=== PATIENT | male | born 1980 | race African-American/Black ===

== ENCOUNTER 2024-02-08 13:01 | Outpatient (AMB) | payer OTHER, SELFPAY ==
[2024-02-08 13:08] VITALS: BP 148/108; PULSE 96; O2SAT 96; BMI 42.8
--- NOTE | 2024-02-08 13:08 | A.OFFPC_ITS ---
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 They have not had the opportunity to see a PCP previously, as they were incarcerated for a period of 10 years and have only recently been released. Hotel Room Attendant Required: No Accompanied by: Self / Same As Patient Allergies No Known Allergies Allergy (Verified 02/08/24 13:26) Medication List - Last Reconciled 02/08/24 by Benigno Green PA-C amlodipine 5 mg PO DAILY 30 days atorvastatin 20 mg PO DAILY 30 days blood pressure test kit-large Testing once a day losartan 100 mg PO DAILY 30 days Tobacco use date assessed: 02/08/24 Dental Screening Dental Screen Date: 02/08/24 Did you have a dental visit in the last 12 months?: No Did you have a dental problem in the last 6 months where you did not have access to dental care?: No Was dental information given to patient?: Yes 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 Patient has a past medical history significant for hypertension, hyperlipidemia, PTSD and major depressive disorder. He has not seen a PCP in quite some time. He does report being incarcerated over the last 10 years and recently released. Currently on probation and is trying to get his life back together. Hypertension: Blood pressure today in office elevated, he recently restarted blood pressure medication. He reports the blood pressure medication he is on currently has been effective for him. He would like to hold making any changes in monitor blood pressure at home over the next few weeks. He otherwise is asymptomatic without any headache, chest discomfort or shortness a breath. .. Hyperlipidemia: Patient continues on atorvastatin 20 mg without any side effects. . PTSD: Currently speaking with a mental health therapist. Does have PTSD from his 10 year incarceration. He still suffers with difficulties with depression including symptoms mood instability, isolation, irritability, quick to anger. He is interested in starting mental health medications to help him regulate. .. Tobacco dependency: He does report smoking 4-5 cigarettes per day and does understand he needs to quit. Had this time he has not interested in any nicotine replacement or medications to help him quit smoking. [facility] Surgical History History of tooth extraction Social History (Updated 02/08/24 @ 13:46 by Benigno Green PA-C) Housing: Apartment Alcohol intake: never Patient Tobacco Use Status: Current everyday Tobacco user Tobacco use type: Cigarette Cigarettes Per Day: 5 e-Cigarette/Vaping Use: Never Used Substance Use Type: Marijuana service: No Current occupational status: unemployed Cognitive needs: No Hearing needs: No Vision needs: No Questionnaire PHQ-9 Over the last 2 weeks, how often have you been bothered by any of the following problems? 1. Little interest or pleasure in doing things: nearly every day 2. Feeling down, depressed, or hopeless: nearly every day 3. Trouble falling or staying asleep, or sleeping too much: nearly every day 4. Feeling tired or having little energy: nearly every day 5. Poor appetite or overeating: nearly every day 6. Feeling bad about yourself - or that you are a failure or have let yourself or your family down: nearly every day 7. Trouble concentrating on things, such as reading the newspaper or watching television: nearly every day 8. Moving or speaking so slowly that other people could have noticed. Or the opposite - being so fidgety or restless that you have been moving around a lot more than usual: nearly every day 9. Thoughts that you would be better off or of hurting yourself in some way: not at all Total score: 24 Depression Screening Interpretation: Positive Depression Screening Follow-up: Existing condition and New Medication prescribed Depression Screening Done: Yes 73468 - PHQ-9 Billing: Yes Source: Developed by Drs. Laureano Hazel, Margarita Mc, Travis Tamayo and colleagues, with an educational emelina from [employer]. Thrive Questionnaire Date Thrive assessed: 02/08/24 I am a: Patient What is your living situation today?: I have a steady place to live Within the past 12 months, did the food you bought not last and you didn't have the money to get more?: Never true Within the past 12 months, did you worry whether your food would run out before you got money to buy more?: Never true Do you have trouble paying for medicines?: No Do you have trouble getting transportation to medical appointments?: No Do you have trouble paying your heating and electricity bill?: No Do you have trouble taking care of your child, family member or friend?: No Do you have trouble with day-to-day activities such as bathing, preparing meals, shopping, managing finances, etc.?: No Are you currently unemployed and looking for a job?: No Are you interested in more education?: No Please select the resources that you would like help with: None Currently or been in a relationship where the following occur: no concerns reported THRIVE Score: 0 AUDIT C Alcohol Use Questionnaire (AUDIT-C) 1. How often do you have a drink containing alcohol?: Never 3. How often do you have six or more drinks on one occasion?: Never Total Score: 0 LUDY-7 AMB Questionnaire LUDY-7 Date LUDY - 7 assessed: 02/08/24 Feeling nervous, anxious, or on edge: 3 = Nearly every day Not being able to stop or control worryin = Nearly every day Worrying too much about different things: 3 = Nearly every day Trouble relaxin = Nearly every day Being so restless that it is hard to sit still: 3 = Nearly every day Becoming easily annoyed or irritable: 3 = Nearly every day Feeling afraid as if something awful might happen: 3 = Nearly every day Total LUDY-7 score (0-4 normal; 5-9 mild; 10-14 moderate; 15-21 severe): 21 Source: Developed by Drs. Laureano Hazel, Margarita Mc, Travis Tamayo and colleagues, with an educational emelina from [employer]. LUDY-7 Assessment Billing LUDY-7 Assessment Tool: LUDY-7 Assessment 05129 Review of Systems Const Denies headache(s) Eyes Denies loss of vision ENT Denies vertigo, Denies dizziness, Denies headache(s) and Denies sore throat Card Denies chest pain, Denies leg edema and Denies lightheadedness Resp Denies cough, Denies hemoptysis and Denies wheezing GI Denies abdominal pain, Denies melena, Denies constipation, Denies diarrhea and Denies vomiting Denies dysuria, Denies urinary frequency and Denies urinary urgency Musc Denies arthralgias, Denies joint swelling, Denies numbness and Denies tingling Neuro Denies Abnormal speech present, Denies behavioral changes, Denies vertigo, Denies dizziness, Denies headache(s), Denies loss of vision, Denies memory loss, Denies numbness and Denies tingling Psych Reports anxiety, Denies behavioral changes, Reports depression, Reports irritability, Denies memory loss, Reports mood swings and Denies panic attacks Carlos/Lymph Denies easy bleeding and Denies easy bruising Aller/Immun Denies wheezing Physical exam (Primary Care) Vital Signs: Last Vital Signs Pulse 96 02/08/24 13:08 BP 148/108 H 02/08/24 13:08 Pulse Ox 96 02/08/24 13:08 Oxygen Delivery Method Room Air 02/08/24 13:08 BMI result Body Mass Index 42.8 BMI Assessment/Plan discussion: High BMI High, discussed plan: lifestyle, weight reduction, dietary and physical activity Tobacco/Smoking Status: Tobacco use Status Tobacco use date assessed 02/08/24 02/08/24 13:18 Patient Tobacco Use Status Current everyday Tobacco 02/08/24 13:46 Tobacco use type Cigarette 02/08/24 13:46 e-Cigarette/Vaping Use Never Used 02/08/24 13:46 Are you ready to quit: No Tobacco cessation counseling provided: Yes Items discussed: [employer] Relapse Prevention: discussed the importance of a supportive environment, discussed negative mood or depression after quitting, weight gain after smoking is common and discussed dietary, exercise and/or lifestyle changes Number of minutes spent counselin CPT code: 11551 - 4-10 Minutes PHQ-9: PHQ-9 Score PHQ-9: Total score 24 02/08/24 13:39 Depression Screening Interpretation: Positive Depression Screening Follow-up: Existing condition and New Medication prescribed Thrive Assessment: Date of Thrive Assessment Date Thrive assessed 02/08/24 02/08/24 13:22 Currently or been in a relationship where the following occur: no concerns reported Const General: healthy appearing, no acute distress, alert and awake Nutritional Appearance: well nourished Orientation/consciousness: oriented to person, oriented to place and oriented to time HENMT Ears: TM's normal bilaterally General nose exam: Normal nasal mucous membranes and turbinates present Eyes Conjunctivae: conjunctivae normal Sclerae: sclerae normal Pupils: Equal, round and reactive pupils present Neck Neck: Yes no lymphadenopathy and Yes no JVD Thyroid: Thyroid normal Carotids: no bruits Resp Effort & Inspection: normal respiratory effort and not tachypneic Auscultation: no crackles, no rales, no rhonchi and no wheezes Cardio Rate: regular rate Rhythm: regular rhythm Heart sounds: no murmurs and normal S1 and S2 GI Palpation (GI): Soft to palpation, nontender, no hepatomegaly and no splenomegaly Auscultation: normal bowel sounds Skin General skin exam: no rashes or lesions noted and dry skin Neuro General: oriented to person, oriented to place and oriented to time Cranial nerves: Yes Equal, round and reactive pupils present Speech: No Abnormal speech present Gait exam (Neuro): Normal gait present Motor exam (neuro): no tremor noted Extrem Right upper extremity: full ROM Left upper extremity: full ROM Right lower extremity: full ROM; no edema Left lower extremity: full ROM; no edema Psych Mental Status: mental status grossly normal Speech and movement: Normal speech and movement present Affect: normal affect Attitude: cooperative Thought process: Normal thought process present Assessment and Plan Assessment & Plan (1) Hypertension: Code(s): I10 - Essential (primary) hypertension Qualifiers: Hypertension type: primary hypertension Qualified Code(s): I10 - Essential (primary) hypertension Plan: Blood pressure elevated today in office. Will supply patient with paper Rx for blood pressure cuff to do blood pressure monitoring at home. If blood pressure remains consistently above 140/90 will consider up titrating amlodipine dose. Goal blood pressures to be below 140/90. (2) Hyperlipidemia: Code(s): E78.5 - Hyperlipidemia, unspecified Qualifiers: Hyperlipidemia type: mixed hyperlipidemia Qualified Code(s): E78.2 - Mixed hyperlipidemia Plan: Will check fasting lipid panel to ensure stable cholesterol. Goal LDL to be below 160 (3) PTSD (post-traumatic stress disorder): Code(s): F43.10 - Post-traumatic stress disorder, unspecified Plan: As per HPI was incarcerated for 10 years, patient suffers with PTSD, major depressive disorder and anxiety. He currently does speak with a mental therapist (4) Obese: Code(s): E66.9 - Obesity, unspecified Qualifiers: Body mass index: BMI 40.0-44.9 Obesity classification: adult class 3 (BMI >= 40) Obesity type: due to excess calories Serious obesity comorbidity presence: with serious comorbidity Qualified Code(s): E66.01 - Morbid (severe) obesity due to excess calories; Z68.41 - Body mass index [BMI] 40.0-44.9, adult Plan: Patient does understand his BMI is over 40 will work on being more physically active and adapt to better eating habits to reduce his weight (5) MDD (major depressive disorder), recurrent episode, moderate: Code(s): F33.1 - Major depressive disorder, recurrent, moderate Plan: Patient's PHQ-9 score positive depression which has been existing condition for him. He is willing to start SSRI therapy again to help him with his depression. Will follow-up in 4 weeks to evaluate the effectiveness of medication. (6) Tobacco dependence: Code(s): F17.200 - Nicotine dependence, unspecified, uncomplicated Plan: Edbrenda understand seen does need to quit smoking. At this time he has not interested in smoking cessation help as he uses smoking as a stress reliever. (7) Constipation: Code(s): K59.00 - Constipation, unspecified Qualifiers: Constipation type: other constipation type Qualified Code(s): K59.09 - Other constipation Orders: Orders Microalbumin, Random (w Creat) 02/08/24 I10 - Essential (primary) hypertension Comprehensive [place]. Panel Fast 02/08/24 I10 - Essential (primary) hypertension Lipid Panel 02/08/24 E78.2 - Mixed hyperlipidemia Complete Blood Count no Diff 02/08/24 I10 - Essential (primary) hypertension Medications: New sennosides (Senna Lax) 8.6 mg PO BEDTIME 30 tabs 0RF 30 days K59.09 - Other constipation blood pressure test kit-large Testing once a day 1 ea 0RF I10 - Essential (primary) hypertension trazodone 50 mg PO BEDTIME 30 tabs 3RF 30 days F33.1 - Major depressive disorder, recurrent, moderate sertraline 50 mg PO DAILY 30 tabs 3RF 30 days F33.1 - Major depressive disorder, recurrent, moderate Patient Instructions: Goals: Blood pressure to remain below 140/90 Barriers: Adherence to medication, healthy eating habits and physical activity Coding Level of Care Code New Pt Level 4 (02091) Diagnoses Primary hypertension I10 Hypertension type: primary hypertension Mixed hyperlipidemia E78.2 Hyperlipidemia type: mixed hyperlipidemia PTSD (post-traumatic stress disorder) F43.10 Class 3 severe obesity due to excess calories with serious comorbidity and body mass index (BMI) of 40.0 to 44.9 in adult E66.01; Z68.41 Body mass index: BMI 40.0-44.9 Obesity classification: adult class 3 (BMI >= 40) Obesity type: due to excess calories Serious obesity comorbidity presence: with serious comorbidity MDD (major depressive disorder), recurrent episode, moderate F33.1 Tobacco dependence F17.200 Other constipation K59.09 Constipation type: other constipation type Additional Codes LUDY-7 Assessment Billing - LUDY-7 Assessment Tool: LUDY-7 Assessment 64541 ([id number]) Vital Signs *Quality* - CPT code: 31393 - 4-10 Minutes ([id number])
== END 2024-02-08 13:54 | disposition home or self-care (01) ==
PROVIDERS: PCP Physician Assistant; Visit Provider Physician Assistant
DX: I10 Essential (primary) hypertension (principal); E66.01 Morbid (severe) obesity due to excess calories; Z68.41 Body mass index [BMI] 40.0-44.9, adult; F33.1 Major depressive disorder, recurrent, moderate; E78.2 Mixed hyperlipidemia; F43.10 Post-traumatic stress disorder, unspecified; F17.200 Nicotine dependence, unspecified, uncomplicated; K59.09 Other constipation
CPT/HCPCS: 96127; 99204

== ENCOUNTER 2024-03-16 10:44 | Outpatient (AMB) | payer OTHER, SELFPAY ==
[2024-03-16 10:54] VITALS: BP 156/110; PULSE 82; O2SAT 95; BMI 42.8
--- NOTE | 2024-03-16 10:54 | MHC.PC.OV ---
Vital Signs 03/16/24 10:54 Height 5 ft 10 in Weight 298 lb 6 oz BMI 42.8 BP 156/110 H Blood Pressure Location Lt brachial Position Sitting Pulse 82 Pulse Source Pulse Oximeter Pulse Oximetry (%) 95 Oxygen Delivery Method Room Air Intake Visit Reasons: 1mof\u Intake Note: Pt is here for HTN F/U. Night Manager Required: No Accompanied by: Self / Same As Patient Allergies No Known Allergies Allergy (Verified 03/16/24 11:13) Medication List - Last Reconciled 03/16/24 by Benigno Green PA-C amlodipine 5 mg PO DAILY 30 days atorvastatin 20 mg PO DAILY 30 days blood pressure test kit-large Testing once a day losartan 100 mg PO DAILY 30 days sennosides (Senna Lax) 8.6 mg PO BEDTIME 30 days sertraline 50 mg PO DAILY 30 days trazodone 50 mg PO BEDTIME 30 days Tobacco use date assessed: 02/08/24 Dental Screening Dental Screen Date: 02/08/24 HPI 1mof\u HPI Details Patient is a 43-year-old male here today for a one-month follow-up visit Patient has a past medical history significant for hypertension, hyperlipidemia, PTSD and major depressive disorder. He does report being incarcerated over the last 10 years and recently released. Currently on probation and is trying to get his life back together. At last visit we discussed his depression and anger was willing to start SSRI therapy. He has speaking with a mental health therapist as well. Unfortunately was in the process of changing insurance and was not able to get the trazodone with the sertraline. He is working on getting new insurance and will flower buncher or picker medication when he can. Follow-up in 6 weeks to evaluate effectiveness of the medication. CHRONIC MEDICAL CONDITION--> Hypertension: Blood pressure today in office elevated, he recently restarted blood pressure medication. He reports the blood pressure medication he is on currently has been effective for him. He would like to hold making any changes in monitor blood pressure at home over the next few weeks. He otherwise is asymptomatic without any headache, chest discomfort or shortness a breath. PLAN: Continue working on lifestyle and dietary modifications. Will consider increasing amlodipine to optimal dose .. Hyperlipidemia: Patient continues on atorvastatin 20 mg without any side effects. . PTSD: Currently speaking with a mental health therapist. Does have PTSD from his 10 year incarceration. He still suffers with difficulties with depression including symptoms mood instability, isolation, irritability, quick to anger. He is interested in starting mental health medications to help him regulate. .. Tobacco dependency: He does report smoking 4-5 cigarettes per day and does understand he needs to quit. Had this time he has not interested in any nicotine replacement or medications to help him quit smoking. [facility] Surgical History History of tooth extraction Social History Housing: Apartment Alcohol intake: never Patient Tobacco Use Status: Current everyday Tobacco user Tobacco use type: Cigarette Cigarettes Per Day: 5 e-Cigarette/Vaping Use: Never Used Substance Use Type: Marijuana service: No Current occupational status: unemployed Cognitive needs: No Hearing needs: No Vision needs: No Questionnaire Thrive Questionnaire Date Thrive assessed: 02/08/24 LUDY-7 AMB Questionnaire LUDY-7 Date ULDY - 7 assessed: 02/08/24 Source: Developed by Drs. Laureano Hazel, Margarita Mc, Travis Tamayo and colleagues, with an educational emelina from [employer]. Review of Systems Const Denies headache(s) Eyes Denies loss of vision ENT Denies vertigo, Denies dizziness, Denies headache(s) and Denies sore throat Card Denies chest pain, Denies leg edema and Denies lightheadedness Resp Denies cough, Denies hemoptysis and Denies wheezing GI Denies abdominal pain, Denies melena, Denies constipation, Denies diarrhea and Denies vomiting Denies dysuria, Denies urinary frequency and Denies urinary urgency Musc Denies arthralgias, Denies joint swelling, Denies numbness and Denies tingling Neuro Denies Abnormal speech present, Denies behavioral changes, Denies vertigo, Denies dizziness, Denies headache(s), Denies loss of vision, Denies memory loss, Denies numbness and Denies tingling Psych Denies anxiety, Denies behavioral changes, Denies depression, Denies memory loss and Denies panic attacks Carlos/Lymph Denies easy bleeding and Denies easy bruising Aller/Immun Denies wheezing Physical exam (Primary Care) Vital Signs: Last Vital Signs Pulse 82 03/16/24 10:54 BP 156/110 H 03/16/24 10:54 Pulse Ox 95 03/16/24 10:54 Oxygen Delivery Method Room Air 03/16/24 10:54 BMI result Body Mass Index 42.8 BMI Assessment/Plan discussion: High BMI High, discussed plan: lifestyle, weight reduction, dietary and physical activity Tobacco/Smoking Status: Tobacco use Status Tobacco use date assessed 02/08/24 03/16/24 10:54 Patient Tobacco Use Status Current everyday Tobacco 03/16/24 10:54 Tobacco use type Cigarette 03/16/24 10:54 e-Cigarette/Vaping Use Never Used 03/16/24 10:54 Are you ready to quit: No Tobacco cessation counseling provided: Yes Items discussed: Nicotine replacement Relapse Prevention: discussed the importance of a supportive environment, discussed negative mood or depression after quitting, weight gain after smoking is common and discussed dietary, exercise and/or lifestyle changes Number of minutes spent counselin CPT code: 91923 - 4-10 Minutes Thrive Assessment: Date of Thrive Assessment Date Thrive assessed 02/08/24 03/16/24 10:54 Const General: healthy appearing, no acute distress, alert and awake Nutritional Appearance: well nourished Orientation/consciousness: oriented to person, oriented to place and oriented to time HENMT Ears: TM's normal bilaterally General nose exam: Normal nasal mucous membranes and turbinates present Eyes Conjunctivae: conjunctivae normal Sclerae: sclerae normal Pupils: Equal, round and reactive pupils present Neck Neck: Yes no lymphadenopathy and Yes no JVD Thyroid: Thyroid normal Carotids: no bruits Resp Effort & Inspection: normal respiratory effort and not tachypneic Auscultation: no crackles, no rales, no rhonchi and no wheezes Cardio Rate: regular rate Rhythm: regular rhythm Heart sounds: no murmurs and normal S1 and S2 GI Palpation (GI): Soft to palpation, nontender, no hepatomegaly and no splenomegaly Auscultation: normal bowel sounds Skin General skin exam: no rashes or lesions noted and dry skin Neuro General: oriented to person, oriented to place and oriented to time Cranial nerves: Yes Equal, round and reactive pupils present Speech: No Abnormal speech present Gait exam (Neuro): Normal gait present Motor exam (neuro): no tremor noted Extrem Right upper extremity: full ROM Left upper extremity: full ROM Right lower extremity: full ROM; no edema Left lower extremity: full ROM; no edema Psych Mental Status: mental status grossly normal Speech and movement: Normal speech and movement present Affect: normal affect Attitude: cooperative Thought process: Normal thought process present Assessment and Plan Assessment & Plan (1) Hypertension: Code(s): I10 - Essential (primary) hypertension Qualifiers: Hypertension type: primary hypertension Qualified Code(s): I10 - Essential (primary) hypertension Plan: Blood pressure elevated today in office. Will supply patient with paper Rx for blood pressure cuff to do blood pressure monitoring at home. If blood pressure remains consistently above 140/90 will consider up titrating amlodipine dose. Goal blood pressures to be below 140/90. (2) Hyperlipidemia: Code(s): E78.5 - Hyperlipidemia, unspecified Qualifiers: Hyperlipidemia type: mixed hyperlipidemia Qualified Code(s): E78.2 - Mixed hyperlipidemia Plan: Will check fasting lipid panel to ensure stable cholesterol. Goal LDL to be below 160 (3) PTSD (post-traumatic stress disorder): Code(s): F43.10 - Post-traumatic stress disorder, unspecified Plan: As per HPI was incarcerated for 10 years, patient suffers with PTSD, major depressive disorder and anxiety. He currently does speak with a mental therapist (4) MDD (major depressive disorder), recurrent episode, moderate: Code(s): F33.1 - Major depressive disorder, recurrent, moderate Plan: Unfortunately was not able to receive SSRI therapy and trazodone from pharmacy due to insurance issues. He plans on fixing his insurance issue in starting medication. Does speak with a mental health therapist on a weekly basis. (5) Tobacco dependence: Code(s): F17.200 - Nicotine dependence, unspecified, uncomplicated Plan: Ap rivas seen does need to quit smoking. At this time he has not interested in smoking cessation help as he uses smoking as a stress reliever. (6) Constipation: Code(s): K59.00 - Constipation, unspecified Qualifiers: Constipation type: other constipation type Qualified Code(s): K59.09 - Other constipation Plan: Given samples of powder MiraLax today in office. Patient Instructions: Goal: Loose 20-30 lb over the next year. Blood pressure to be below 140/90 Barriers: Adherence to physical activity and healthy eating habits Coding Level of Care Code Est Pt Level 4 (21199) Complex EM visit Add On G2211 Diagnoses Primary hypertension I10 Hypertension type: primary hypertension Mixed hyperlipidemia E78.2 Hyperlipidemia type: mixed hyperlipidemia PTSD (post-traumatic stress disorder) F43.10 MDD (major depressive disorder), recurrent episode, moderate F33.1 Tobacco dependence F17.200 Other constipation K59.09 Constipation type: other constipation type Additional Codes Vital Signs *Quality* - CPT code: 08434 - 4-10 Minutes ([id number])
== END 2024-03-16 11:44 | disposition home or self-care (01) ==
PROVIDERS: PCP Physician Assistant; Visit Provider Physician Assistant
DX: I10 Essential (primary) hypertension (principal); E78.2 Mixed hyperlipidemia; F43.10 Post-traumatic stress disorder, unspecified; F33.1 Major depressive disorder, recurrent, moderate; F17.200 Nicotine dependence, unspecified, uncomplicated; K59.09 Other constipation
CPT/HCPCS: 99214; 99406; G2211

== ENCOUNTER 2025-03-20 16:05 | Outpatient (AMB) | payer OTHER, SELFPAY ==
--- NOTE | 2025-03-20 16:16 | MHC.PC.OV ---
Vital Signs 03/20/25 16:20 Height 5 ft 10 in Weight 306 lb 6 oz BMI 44.0 BP 132/100 H Blood Pressure Location Lt brachial Position Sitting Pulse 96 Pulse Source Pulse Oximeter Temp 97.3 F Temp Source Temporal Artery Scan Pulse Oximetry (%) 99 Oxygen Delivery Method Room Air Intake Visit Reasons: follow up Advertisement Compositor Required: No Accompanied by: Self / Same As Patient Allergies No Known Allergies Allergy (Verified 03/20/25 16:28) Medication List - Last Reconciled 03/20/25 by Benigno Green PA-C amlodipine 5 mg PO DAILY 30 days atorvastatin 20 mg PO DAILY 30 days blood pressure test kit-large Testing once a day losartan 100 mg PO DAILY 30 days sennosides (Senna Lax) 8.6 mg PO BEDTIME 30 days sertraline 50 mg PO DAILY 30 days trazodone 50 mg PO BEDTIME 30 days Tobacco use date assessed: 03/20/25 Dental Screening Dental Screen Date: 03/20/25 Did you have a dental visit in the last 12 months?: Yes Did you have a dental problem in the last 6 months where you did not have access to dental care?: No Was dental information given to patient?: Patient has dentist HPI follow up HPI Details Patient is a 45-year-old male here today for a follow-up visit. Patient has a past medical history significant for hypertension, hyperlipidemia, PTSD and major depressive disorder. He does report being incarcerated over the last 10 years and recently released. HOMELESS-- > Over the last four months, he has experienced a marked decline in his living conditions due to eviction and subsequent homelessness. This instability contributed to an inability to maintain his medication regimen for hypertension, and he has noticed increased swelling in his lower extremities, likely due to inadequate management of his condition. He acknowledges consuming high-sodium and sugary foods due to financial stress, which may exacerbate his symptoms. Additionally, the patient's mental health has been impacted significantly, with heightened anxiety and disrupted sleep patterns attributed to his PTSD. The absence of consistent medication exacerbates his condition. He has experienced challenges in attending his mental health appointments regularly. However, he has committed to resuming his mental health care and addressing his medical conditions with renewed focus. Despite past difficulties, he is motivated to regain control over his health by engaging with available healthcare services. CHRONIC MEDICAL CONDITION--> Hypertension: Blood pressure today in office elevated, he has been off of his blood pressure medication for quite some time now. Has been experiencing lower extremity edema. PLAN: Will reinitiate both of his blood pressure medication amlodipine and losartan. .. Hyperlipidemia: Patient continues on atorvastatin 20 mg without any side effects. . PTSD: He is in the process of getting established with a mental health therapist. Does have PTSD from his 10 year incarceration. He still suffers with difficulties with depression including symptoms mood instability, isolation, irritability, quick to anger. He is interested in starting mental health medications to help him regulate. .. Tobacco dependency: He does report smoking 4-5 cigarettes per day and does understand he needs to quit. Had this time he has not interested in any nicotine replacement or medications to help him quit smoking. [facility] Surgical History History of tooth extraction Social History Housing: Apartment Alcohol intake: never Patient Tobacco Use Status: Current everyday Tobacco user Tobacco use type: Cigarette Cigarettes Per Day: 5 e-Cigarette/Vaping Use: Never Used Substance Use Type: Marijuana service: No Current occupational status: unemployed Cognitive needs: No Hearing needs: No Vision needs: No Questionnaire PHQ-9 Over the last 2 weeks, how often have you been bothered by any of the following problems? 1. Little interest or pleasure in doing things: not at all 2. Feeling down, depressed, or hopeless: several days 3. Trouble falling or staying asleep, or sleeping too much: several days 4. Feeling tired or having little energy: several days 5. Poor appetite or overeating: several days 6. Feeling bad about yourself - or that you are a failure or have let yourself or your family down: not at all 7. Trouble concentrating on things, such as reading the newspaper or watching television: several days 8. Moving or speaking so slowly that other people could have noticed. Or the opposite - being so fidgety or restless that you have been moving around a lot more than usual: not at all 9. Thoughts that you would be better off or of hurting yourself in some way: not at all Total score: 5 Depression Screening Interpretation: Positive Depression Screening Follow-up: Existing condition and Community Mental Health Worker F/U Depression Screening Done: Yes 23898 - PHQ-9 Billing: Yes Source: Developed by Drs. Laureano Hazel, Margarita Mc, Travis Tamayo and colleagues, with an educational emelina from [employer]. Thrive Questionnaire Date Thrive assessed: 03/20/25 I am a: Patient What is your living situation today?: I do not have a steady places to live I choose not to answer this question Within the past 12 months, did the food you bought not last and you didn't have the money to get more?: Sometimes True Within the past 12 months, did you worry whether your food would run out before you got money to buy more?: Sometimes True Do you have trouble paying for medicines?: Yes Do you have trouble getting transportation to medical appointments?: Yes Do you have trouble paying your heating and electricity bill?: No Do you have trouble taking care of your child, family member or friend?: Yes Do you have trouble with day-to-day activities such as bathing, preparing meals, shopping, managing finances, etc.?: No Are you currently unemployed and looking for a job?: Yes Are you interested in more education?: Yes Please select the resources that you would like help with: Housing/Custodial Currently or been in a relationship where the following occur: I choose not to answer THRIVE Score: 4 AUDIT C Alcohol Use Questionnaire (AUDIT-C) 1. How often do you have a drink containing alcohol?: 2-4 times a month 2. How many drinks containing alcohol do you have on a typical day when you are drinking?: 3 or 4 3. How often do you have six or more drinks on one occasion?: Monthly Total Score: 5 LUDY-7 AMB Questionnaire LUDY-7 Date LUDY - 7 assessed: 03/20/25 Feeling nervous, anxious, or on edge: 1 = Several days Not being able to stop or control worryin = Several days Worrying too much about different things: 1 = Several days Trouble relaxin = Several days Being so restless that it is hard to sit still: 1 = Several days Becoming easily annoyed or irritable: 1 = Several days Feeling afraid as if something awful might happen: 1 = Several days Total LUDY-7 score (0-4 normal; 5-9 mild; 10-14 moderate; 15-21 severe): 7 Source: Developed by Drs. Laureano Hazel, Margarita Mc, Travis Tamayo and colleagues, with an educational emelina from [employer]. LUDY-7 Assessment Billing LUDY-7 Assessment Tool: LUDY-7 Assessment 03775 Physical exam (Primary Care) Vital Signs: Last Vital Signs Temp 97.3 F 03/20/25 16:20 Pulse 96 03/20/25 16:20 BP 132/100 H 03/20/25 16:20 Pulse Ox 99 03/20/25 16:20 Oxygen Delivery Method Room Air 03/20/25 16:20 BMI result Body Mass Index 44.0 Tobacco/Smoking Status: Tobacco use Status Tobacco use date assessed 03/20/25 03/20/25 16:19 Patient Tobacco Use Status Current everyday Tobacco 03/20/25 16:19 Tobacco use type Cigarette 03/20/25 16:19 e-Cigarette/Vaping Use Never Used 03/20/25 16:19 PHQ-9: PHQ-9 Score PHQ-9: Total score 5 03/20/25 16:32 Depression Screening Interpretation: Positive Depression Screening Follow-up: Existing condition and Community Mental Health Worker F/U Thrive Assessment: Date of Thrive Assessment Date Thrive assessed 03/20/25 03/20/25 16:19 Currently or been in a relationship where the following occur: I choose not to answer Coding Level of Care Code Est Pt Level 4 (82401) Diagnoses Primary hypertension I10 Hypertension type: primary hypertension Lower extremity edema R60.0 LEODAN (obstructive sleep apnea) G47.33 Homeless Z59.00 MDD (major depressive disorder), recurrent episode, moderate F33.1 Mixed hyperlipidemia E78.2 Hyperlipidemia type: mixed hyperlipidemia Class 3 obesity E66.813 PTSD (post-traumatic stress disorder) F43.10 Additional Codes LUDY-7 Assessment Billing - LUDY-7 Assessment Tool: LUDY-7 Assessment 13773 ([id number]) PHQ-9 - 70163 - PHQ-9 Billing: Yes ([id number]) Assessment & Plan Assessment & Plan (1) Hypertension: Code(s): I10 - Essential (primary) hypertension Category: Medical Qualifiers: Hypertension type: primary hypertension Qualified Code(s): I10 - Essential (primary) hypertension Plan: Patient's blood pressure elevated today in office. Has been off of blood pressure medication for quite some time. Again experiencing bilateral lower extremity edema likely secondary to his poor eating habits. Will restart amlodipine and losartan for better blood pressure control. Goal blood pressures to be below 140/90 (2) Lower extremity edema: Code(s): R60.0 - Localized edema Category: Medical Plan: Will supply patient at 2 week supply of Lasix to help with his lower extremity edema. (3) LEODAN (obstructive sleep apnea): Code(s): G47.33 - Obstructive sleep apnea (adult) (pediatric) Category: Medical Plan: Patient has a high-risk for obstructive sleep apnea, he has been told he falls asleep in snores very loud by his friends. Will send for in lab sleep study as he does not have a stable home at this time. (4) Homeless: Code(s): Z59.00 - Homelessness unspecified Category: Social Hx Plan: Patient currently on will with some programming though this is unclear. Will reach out to community navigation to help him navigate housing situation and try to get him stable housing. (5) MDD (major depressive disorder), recurrent episode, moderate: Code(s): F33.1 - Major depressive disorder, recurrent, moderate Category: Medical Plan: Patient's PHQ-9 score positive, has an existing condition on major depressive disorder. Will restart his sertraline and trazodone to help stabilize him. (6) Hyperlipidemia: Code(s): E78.5 - Hyperlipidemia, unspecified Category: Medical Qualifiers: Hyperlipidemia type: mixed hyperlipidemia Qualified Code(s): E78.2 - Mixed hyperlipidemia Plan: Patient has a history of hyperlipidemia. Will restart his atorvastatin 20 mg. Advised on getting fasting lipid panel to ensure stable total cholesterol and LDL. Goal LDL is to be below 130 (7) Class 3 obesity: Code(s): E66.813 - Obesity, class 3 Category: Medical Plan: Patient does understand his BMI is over 40 and will work on being more physically active and adapting to better eating habits. (8) PTSD (post-traumatic stress disorder): Code(s): F43.10 - Post-traumatic stress disorder, unspecified Category: Medical Plan: Patient's LUDY-7 score positive for anxiety, also has diagnosed PTSD. Will try to get him set up with community navigation and a mental health therapist. Will restart his mental health medications . Orders: Orders Microalbumin, Random (w Creat) 03/20/25 I10 - Essential (primary) hypertension Complete Blood Count no Diff 03/20/25 I10 - Essential (primary) hypertension RT PSG in-lab sleep study 03/20/25 G47.33 - Obstructive sleep apnea (adult) (pediatric) Comprehensive [place]. Panel Fast 03/20/25 I10 - Essential (primary) hypertension Lipid Panel 03/20/25 E78.2 - Mixed hyperlipidemia Medications: Changed From amlodipine 5 mg PO DAILY 30 days 30 tabs 1RF I10 - Essential (primary) hypertension To amlodipine 5 mg PO DAILY 90 tabs 1RF 90 days I10 - Essential (primary) hypertension From sertraline 50 mg PO DAILY 30 days 30 tabs 3RF F33.1 - Major depressive disorder, recurrent, moderate To sertraline 50 mg PO DAILY 90 tabs 1RF 90 days F33.1 - Major depressive disorder, recurrent, moderate From atorvastatin 20 mg PO DAILY 30 days 30 tabs 1RF E78.2 - Mixed hyperlipidemia To atorvastatin 20 mg PO DAILY 90 tabs 1RF 90 days E78.2 - Mixed hyperlipidemia From trazodone 50 mg PO BEDTIME 30 days 30 tabs 3RF F33.1 - Major depressive disorder, recurrent, moderate To trazodone 50 mg PO BEDTIME 90 tabs 1RF 90 days F33.1 - Major depressive disorder, recurrent, moderate From losartan 100 mg PO DAILY 30 days 30 tabs 1RF I10 - Essential (primary) hypertension To losartan 100 mg PO DAILY 90 tabs 1RF 90 days I10 - Essential (primary) hypertension Patient Instructions: Goal: Blood pressure to be below 140/90, LDL to be below 130 Barriers: Housing, access to healthy foods
[2025-03-20 16:20] VITALS: BP 132/100; PULSE 96; TEMP 36.3; O2SAT 99; BMI 44.0
== END 2025-03-20 17:23 | disposition home or self-care (01) ==
LOC: HO.HMCH 16:06
PROVIDERS: PCP Physician Assistant; Visit Provider Physician Assistant
DX: I10 Essential (primary) hypertension (principal); E66.813 Obesity, class 3; F33.1 Major depressive disorder, recurrent, moderate; Z68.41 Body mass index [BMI] 40.0-44.9, adult; R60.0 Localized edema; G47.33 Obstructive sleep apnea (adult) (pediatric); Z59.00 Homelessness unspecified; E78.2 Mixed hyperlipidemia; F43.10 Post-traumatic stress disorder, unspecified

== ENCOUNTER → 2025-03-20 16:05 | Outpatient (BNVA) | payer OTHER, SELFPAY | PROVIDERS: PCP Physician Assistant; Visit Provider Physician Assistant | DX: I10 Essential (primary) hypertension (principal); R60.0 Localized edema; G47.33 Obstructive sleep apnea (adult) (pediatric); F33.1 Major depressive disorder, recurrent, moderate; E78.2 Mixed hyperlipidemia; E66.813 Obesity, class 3; Z68.41 Body mass index [BMI] 40.0-44.9, adult; F43.10 Post-traumatic stress disorder, unspecified; Z59.00 Homelessness unspecified; Z13.31 Encounter for screening for depression; Z13.30 Encounter for screening examination for mental health and behavioral disorders, unspecified | CPT/HCPCS: 96127; 99212 ==